=== PATIENT | male | born 1960 | race Caucasian/White ===

== ENCOUNTER 2019-06-12 09:17 | Inpatient (IN) ==
[2019-06-12] MEDS ORDERED: SIMETHICONE CHEW 125 MG TABLET PO PRN (09:43)
[2019-06-12] MEDS ORDERED: BISACODYL 5 MG TABLET PO PRN (09:43)
[2019-06-12] MEDS ORDERED: diphenhydrAMINE CAP 25 MG CAPSULE PO PRN (09:43)
[2019-06-12] MEDS ORDERED: MAGNESIUM SULF RIDER 4 GM in PREMIX 1 EACH IV PRN (09:43)
[2019-06-12] MEDS ORDERED: MAGNESIUM SULF RIDER 2 GM in PREMIX 1 EACH IV PRN (09:43)
[2019-06-12] MEDS ORDERED: guaiFENesin/DM ER 600-30 MG TABLET PO PRN (09:43)
[2019-06-12] MEDS ORDERED: LACTULOSE 20 GM/30 ML UDCUP PO PRN (09:43)
[2019-06-12] MEDS ORDERED: POTASSIUM CHLORIDE 20 MEQ TABLET PO PRN (09:43)
[2019-06-12] MEDS ORDERED: ONDANSETRON 4 MG/2 ML VIAL IV PRN (09:43)
[2019-06-12] MEDS ORDERED: MORPHINE 4 MG/1 ML VIAL IV PRN (09:43)
[2019-06-12] MEDS ORDERED: ALUMINUM/MAGNES/SIMETH MAX STR 30 ML UDCUP PO PRN (09:43)
[2019-06-12] MEDS ORDERED: ZALEPLON 5 MG CAPSULE PO PRN (09:43)
[2019-06-12] MEDS ORDERED: hydrALAZINE 20 MG/1 ML VIAL IV PRN (09:43)
[2019-06-12] MEDS ORDERED: ACETAMINOPHEN 325 MG TABLET PO PRN (09:43)
[2019-06-12] MEDS ORDERED: ENOXAPARIN 150 MG/ML SYRINGE SUBCUT ONE (09:50)
[2019-06-12] MEDS ORDERED: SODIUM CHLORIDE 0.45% 1,000 ML IV SCH (10:00)
[2019-06-12 12:09] LABS: CKMB % 2.6 %; Troponin I < 0.015 NG/ML (0.00-0.045)
[2019-06-12] MEDS ORDERED: diphenhydrAMINE CAP 25 MG CAPSULE PO ONE (12:30)
[2019-06-12] MEDS ORDERED: DIAZEPAM 5 MG TABLET PO ONE (12:30)
[2019-06-12 13:41] LABS: CKMB % 2.7 %; Troponin I < 0.015 NG/ML (0.00-0.045)
[2019-06-12] MEDS ORDERED: HEPARIN/NACL 0.9% 2 UNITS/ML 1,000 ML IV ONE (16:13)
[2019-06-12] MEDS ORDERED: LIDOCAINE 1% 20 ML VIAL ONE (16:13)
[2019-06-12 16:43] LABS: Troponin I < 0.015 NG/ML (0.00-0.045)
[2019-06-12] MEDS ORDERED: MIDAZOLAM 2 MG/2 ML VIAL ONE ×2 (17:00→17:10)
[2019-06-12] MEDS ORDERED: fentaNYL 100 MCG/2 ML VIAL ONE (17:00)
[2019-06-12] MEDS ORDERED: VERAPAMIL 5 MG/2 ML VIAL ONE (17:01)
[2019-06-12] MEDS ORDERED: NITROGLYCERIN DRIP 50 MG/250 ML BOTTLE IV ONE (17:01)
[2019-06-12] MEDS ORDERED: ENOXAPARIN 60 MG/0.6 ML SYRINGE ONE (17:08)
[2019-06-13 05:33] LABS: Basophils % 0.5 % (0.0-0.8); Eosinophils # 0.3 10*3/uL (0.0-0.87); Eosinophils % 3.8 % (0.00-10.9); Hematocrit 41.5 VOL% (42.0-52.0); Hemoglobin 13.5 GM/DL (14.0-18.0); Immature Granulocytes % 0.3 %; Immature Granulocytes Absolute 0.02 #; Lymphocytes # 2.1 10*3/uL (1.4-4.0); Lymphocytes % 32.4 % (21.2-54.2); Mean Corpuscular HGB Conc 32.5 GM/DL (32-36); Mean Corpuscular Volume 87.9 FL (87-102); Mean Platelet Volume 12.1 FL (9.6-12.0); Monocytes % 9.2 % (1.7-12.7); Neutrophils % 53.8 % (38.7-73.9); Platelet Count 176 T/CUMM (130-400); Red Blood Count 4.72 MC/CUMM (3.8-5.5); Red Cell Distribution Width 12.8 % (9.3-17.3); White Blood Count 6.6 T/CUMM (4-12)
[2019-06-13 06:02] LABS: Calcium 8.4 MG/DL (8.5-10.1); Osmolality,Calculated 277.5 MOS/KG (273-304)
[2019-06-13] MEDS: PANTOPRAZOLE 40 MG TABLET PO SCH (08:56)
[2019-06-13] MEDS ORDERED: MIDAZOLAM 2 MG/2 ML VIAL ONE ×3 (12:56→14:02)
[2019-06-13] MEDS ORDERED: LIDOCAINE 1% 20 ML VIAL ONE (12:56)
[2019-06-13] MEDS ORDERED: HEPARIN/NACL 0.9% 2 UNITS/ML 500 ML IV ONE ×2 (12:57→14:33)
[2019-06-13] MEDS ORDERED: fentaNYL 100 MCG/2 ML VIAL ONE (12:57)
[2019-06-13] MEDS ORDERED: ceFAZolin 1,000 MG VIAL ONE (12:57)
[2019-06-13] MEDS ORDERED: TISSUE ADHESIVE 1 EACH APPLICATOR TOP ONE (13:38)
[2019-06-13] MEDS ORDERED: hydrALAZINE 20 MG/1 ML VIAL ONE (14:35)
[2019-06-13] MEDS ORDERED: SODIUM CHLORIDE 0.9% 1,000 ML IV SCH (15:00)
[2019-06-14 06:34] LABS: Basophils % 0.3 % (0.0-0.8); Eosinophils # 0.2 10*3/uL (0.0-0.87); Eosinophils % 3.5 % (0.00-10.9); Hematocrit 43.7 VOL% (42.0-52.0); Hemoglobin 14.5 GM/DL (14.0-18.0); Immature Granulocytes % 0.3 %; Immature Granulocytes Absolute 0.02 #; Lymphocytes # 1.8 10*3/uL (1.4-4.0); Lymphocytes % 25.7 % (21.2-54.2); Mean Corpuscular HGB Conc 33.2 GM/DL (32-36); Mean Corpuscular Volume 87.2 FL (87-102); Mean Platelet Volume 11.8 FL (9.6-12.0); Monocytes % 9.8 % (1.7-12.7); Neutrophils % 60.4 % (38.7-73.9); Platelet Count 177 T/CUMM (130-400); Red Blood Count 5.01 MC/CUMM (3.8-5.5); Red Cell Distribution Width 12.9 % (9.3-17.3); White Blood Count 6.9 T/CUMM (4-12)
[2019-06-14 06:59] LABS: Calcium 8.7 MG/DL (8.5-10.1); Osmolality,Calculated 273.8 MOS/KG (273-304)
[2019-06-14 07:04] LABS: Platelet Estimate Adequate
[2019-06-14 08:26] VITALS: BP 164/74
[2019-06-14] MEDS ORDERED: amLODIPine 5 MG TABLET PO SCH (09:00)
[2019-06-14] MEDS: PANTOPRAZOLE 40 MG TABLET PO SCH (09:48)
== END 2019-06-14 10:38 | disposition home or self-care (01) | DRG 243 ==
LOC: N.TELEN 11:05
PROVIDERS: ADMIT Internal Medicine Cardiovascular Disease; ATTEND Internal Medicine Cardiovascular Disease
PROC: CLCCHCL (ICD-10-PCS; 2019-06-12 17:15)